=== PATIENT | female | born 1985 | race Caucasian/White ===

== ENCOUNTER → 2018-03-24 | Outpatient (CLI) | payer OTHER ==
[~2018-03-24] MED LIST: ACET-1311 PO; PRENTAB26 PO; SUMA100T16 PO
== END | disposition home or self-care (01) ==
LOC: C.LABSPEC 11:27
PROVIDERS: ATTEND Obstetrics & Gynecology
DX: Z34.81 Encounter for supervision of other normal pregnancy, first trimester (principal)

== ENCOUNTER → 2018-04-05 | Outpatient (CLI) | payer OTHER | END | disposition home or self-care (01) | LOC: C.LABSPEC 17:48 | PROVIDERS: ATTEND Obstetrics & Gynecology | DX: Z34.81 Encounter for supervision of other normal pregnancy, first trimester (principal); Z3A.00 Weeks of gestation of pregnancy not specified ==

== ENCOUNTER → 2018-04-13 | Outpatient (CLI) | payer OTHER ==
[2018-04-13 14:34] LABS: BASO % 0.1 %; BASO ABS # 0.01 K/uL (0-0.2); EOS % 0.4 %; EOS ABS # 0.03 K/uL (0-0.5); HEMATOCRIT 38.1 % (37-47); HEMOGLOBIN 13.3 g/dL (12.0-16.0); IG# 0.01 K/uL (0.00-0.02); LYMPH % 24.2 %; LYMPH ABS # 1.69 K/uL (1.2-3.4); MEAN CELL VOLUME 82.5 fL (80-100); MEAN CORPUSCULAR HEMOGLOBIN 28.8 pg (25-34); MEAN CORPUSCULAR HGB CONC 34.9 g/dl (32-36); MEAN PLATELET VOLUME 10.8 fL (7.4-10.4); MONO ABS # 0.42 K/uL (0.11-0.59); NEUT % 69.2 %; NEUT ABS # 4.82 K/uL (1.4-6.5); PLATELET COUNT 217 K/uL (130-400); RED CELL DISTRIBUTION WIDTH SD 45.2 fL (36.4-46.3); WHITE BLOOD COUNT 6.98 K/uL (4.8-10.8)
== END | disposition home or self-care (01) ==
LOC: C.LAB1850 12:46
PROVIDERS: ATTEND Obstetrics & Gynecology
DX: Z34.81 Encounter for supervision of other normal pregnancy, first trimester (principal)

== ENCOUNTER 2018-11-06 07:41 | Inpatient (IN) ==
[2018-11-06] MEDS ORDERED: LACTATED RINGER'S 1,000 ML IV PRN ×3 (08:15→14:31)
[2018-11-06] MEDS ORDERED: OXYTOCIN 30 UNITS/500 ML BAG IV PRN ×2 (08:15)
[2018-11-06 08:44] LABS: Hematocrit (blood only) 34.6 % (37-47); Hemoglobin 11.4 g/dL (12.0-16.0); Mean Corpuscular Hgb Conc 32.9 g/dL (32-36); Mean Corpuscular Volume 82.2 fL (80-100); Mean Platelet Volume 10.3 fL (7.4-10.4); Platelet Count 202 K/uL (130-400); RDW Coefficient of Variation 15.6 % (11.5-14.5); RDW Standard Deviation 46.5 fL (36.4-46.3); Red Blood Count 4.21 M/uL (4.2-5.4); White Blood Count 9.29 K/uL (4.8-10.8)
[2018-11-06] MEDS ORDERED: CEFAZOLIN 2000MG 2,000 MG/15 ML SYR IV STA (08:48)
[2018-11-06] MEDS: LACTATED RINGER'S 1,000 ML IV SCH ×2 (09:12→16:50)
--- NOTE | 2018-11-06 13:52 | History & Physical Report ---
Date of Service November 06, 2018 Assessment & Plan (1) 41 weeks gestation of : 32yo at 41.1 weeks GA. IOL Fetus: Cat1 Labor: s/p hernandez. Will start with oxtocin and AROM when able PPH risk: Low risk Vital: wnl Pain: Epidural prn History of Present Illness Primary Care Provider: NO PCP 32yo at 41.1 weeks GA. Patient present for late term IOL. Patient denying regular ctx, VB or LOF and reporting normal FM. course complicated by GBS+ Allergies Allergy/AdvReac Type Severity Reaction Status Date / Time Penicillins Allergy Unknown UNKNOWN - Verified 11/05/18 19:59 Home Medications Home Medications Medication Instructions Recorded Confirmed Type PNV cmb#95-ferrous fumarate-FA 1 tab PO DAILY 11/05/18 11/06/18 History [] Patient History Medical History No known health problems Surgical History No pertinent past surgical history Social History Preferred Language: Nepali Communication Ability: Effective Web Project Manager Required: No Beliefs That Will Affect Care: None marital status: Current Living Situation: Family Other Information That Helps Us Care for You: No Feels Safe at Home: Yes Safety Concerns: Feels Safe At This Time Smoking Status: Former smoker Hx Alcohol Use: No Hx Substance Use: No Physical Exam Vital Signs (Past 24 Hours): Last Vital Signs Temp 36.2 C L 11/06/18 11:59 Pulse 81 11/06/18 12:29 Resp 20 11/06/18 11:59 BP 136/84 11/06/18 12:29 Genitourinary: Manual OB Exam: + cervical dilation 3 cm, + cervical effacement 70% and + station high OB Exam Monitor Tracing: + category I
[2018-11-06] MEDS ORDERED: fentaNYL citrate 100 MCG/2 ML VIAL ONE (14:08)
[2018-11-06] MEDS ORDERED: ePHEDrine sulfate 50 MG/ML AMP ONE (14:08)
[2018-11-06] MEDS ORDERED: fentaNYL 2MCG/ML ROPIV 1.25MG/ML 100 ML BAG EPI ONE (14:08)
[2018-11-06] MEDS ORDERED: BUPIVACAINE 0.25% 30 ML VIAL ONE (14:08)
[2018-11-06] MEDS ORDERED: NALBUPHINE HCL INJ 10 MG/ML AMP IV PRN (14:31)
[2018-11-06] MEDS ORDERED: DiphenhydrAMINE HCL 50 MG/ML VIAL IV PRN (14:31)
[2018-11-06] MEDS ORDERED: ONDANSETRON INJ 2 MG/ML 2 ML VIAL IV PRN (14:31)
[2018-11-06] MEDS ORDERED: NALOXONE HCL 0.4 MG/1 ML VIAL/CARP IV PRN (14:31)
[2018-11-06] MEDS ORDERED: fentaNYL 2MCG/ML ROPIV 1.25MG/ML 100 ML BAG EPI PRN (14:31)
[2018-11-06] MEDS ORDERED: NALOXONE HCL 1 MG in SODIUM CHLORIDE 0.9% 1000ML 1,000 ML IV PRN (14:31)
--- NOTE | 2018-11-06 14:35 | Anesthesiology Consultation ---
Date of Service November 06, 2018 Assessment & Plan (1) Encounter for pre-operative examination: Chart Review Chart Review: Patient NOT seen in Pre Admission Testing and Acceptable Risk for Labor Epidural Consults Requested none History Height/Weight Height: 5 ft 6 in Weight: 105.233 kg Allergies Allergy/AdvReac Type Severity Reaction Status Date / Time Penicillins Allergy Unknown UNKNOWN - Verified 11/05/18 19:59 INFANT Medications Home Medications Medication Instructions Recorded Confirmed Last Taken PNV cmb#95-ferrous fumarate-FA 1 tab PO DAILY 11/05/18 11/06/18 11/06/18 07:00 [] Active Medications Generic Name Dose Route Start Last Admin Trade Name Freq PRN Reason Stop Dose Admin Lactated Ringer's 1,000 mls @ 125 mls/hr 11/06/18 08:15 11/06/18 09:12 Lr IV 11/08/18 08:14 125 mls/hr .Q8H SARAH Administration Oxytocin 30 units in 500 mls @ 22 mls/hr 11/06/18 08:15 11/06/18 14:30 Pitocin IV 11/08/18 08:14 1.32 units/hr .[id number] PRN 22 mls/hr Labor Induction/Augmentation Titration Protocol 1.32 UNITS/HR Past Medical History Medical History No known health problems Past Surgical History Surgical History No pertinent past surgical history Past Anesthesia History No Hx of Anesthesia Complications and No Family Hx of Anesthesia Complications History of PONV No Motion Sickness Screening History of Motion Sickness: No Social History Smoking Status: Former smoker Hx Alcohol Use: No Hx Substance Use: No Exercise / Class Metabolic Activity II 4-5 Yardwork/Stairs/Walk up hill Physical Exam Vital Signs Last Vital Signs Temp 36.2 C L 11/06/18 11:59 Pulse 77 11/06/18 14:51 Resp 20 11/06/18 11:59 BP 129/74 11/06/18 14:51 Pulse Ox 100 11/06/18 14:48 Testing Laboratory Results 11/06/18 08:37
[2018-11-06] MEDS: ePHEDrine sulfate 50 MG/ML AMP IV PRN ×2 (15:00→15:04)
[2018-11-06] MEDS ORDERED: CEFAZOLIN 1000MG 1,000 MG/7.5 ML SYR IV SCH (16:00)
--- NOTE | 2018-11-06 17:46 | Obstetrical Progress Note ---
Date of Service November 06, 2018 Assessment & Plan (1) 41 weeks gestation of : 32yo at 41.1 weeks GA. IOL Fetus: Cat1 with areas of Cat 2 with variables Labor: s/p hernandez. Will start with oxtocin and s/p AROM PPH risk: Low risk Vital: wnl Pain: Epidural in place Subjective Patient comfortable with epidural. Feeling some pressure Physical Exam Vital Signs (Past 24 Hours): Last Vital Signs Temp 36.6 C 11/06/18 17:21 Pulse 110 H 11/06/18 17:38 Resp 18 11/06/18 17:21 BP 110/58 L 11/06/18 17:23 Pulse Ox 98 11/06/18 17:38 Genitourinary: Manual OB Exam: + cervical dilation 6 cm, + cervical effacement 60%, + station -2 and -1 and + amniotic fluid clear OB Exam Monitor Tracing: + category I
[2018-11-06] MEDS ORDERED: DIPHTHERIA/TETANUS/PERTUSSIS 0.5 ML SYR/VIAL IM ONE (19:45)
[2018-11-06] MEDS ORDERED: HYDROCORTISONE ACETATE 25 MG SUPP PR PRN (19:45)
[2018-11-06] MEDS ORDERED: BENZOCAINE 20% AER SPR 82.5 GM CAN EXT PRN (19:45)
[2018-11-06] MEDS ORDERED: BISACODYL 10 MG SUPP PR PRN (19:45)
[2018-11-06] MEDS ORDERED: ACETAMINOPHEN 325 MG TAB PO PRN (19:45)
[2018-11-06] MEDS ORDERED: SUPERCREAM 0.870% 15 GM JAR EXT PRN (19:45)
[2018-11-06] MEDS: IBUPROFEN 600 MG TAB PO PRN (20:05)
[2018-11-06] MEDS ORDERED: METHYLERGONOVINE MALEATE 0.2 MG/ML AMP ONE (20:54)
[2018-11-06] MEDS ORDERED: miSOPROStol 200 MCG TAB PR ONE (20:58)
[2018-11-06] MEDS ORDERED: METHYLERGONOVINE MALEATE 0.2 MG/ML AMP IM STA (20:58)
[2018-11-06] MEDS ORDERED: METHYLERGONOVINE MALEATE 0.2 MG TAB PO SCH (21:00)
[2018-11-06] MEDS: OXYTOCIN 30 UNITS/500 ML BAG IV PRN ×2 (21:11→23:15)
--- NOTE | 2018-11-06 21:18 | Anesthesia Procedure Note ---
Date of Service November 06, 2018 Anesthesia Post Epidural Note Vital Signs Vital Signs: Temp Pulse Resp BP Pulse Ox 36.6 C 87 24 120/65 95 11/06/18 17:21 11/06/18 21:13 11/06/18 18:39 11/06/18 21:13 11/06/18 19:39 Pain Intensity Bilateral Abdomen: Pain Intensity: 2 Notes Mental Status: alert / awake / arousable and participated in evaluation Patient Amnestic to Procedure: No Nausea / Vomiting: adequately controlled Pain: adequately controlled Airway Patency, RR, SpO2: stable & adequate BP & HR: stable & adequate Hydration State: stable & adequate Neuraxial Anesthesia: was administered and sensory block is resolving Anesthetic Complications: no major complications apparent and Pt Satisfied with anesthetic care Epidural: Removed without complications and With tip intact
[2018-11-06] MEDS ORDERED: Nursing to Pharmacy Communication ONE (21:24)
--- NOTE | 2018-11-06 22:48 | Delivery Summary ---
DATE OF OPERATION: 11/06/2018 PREOPERATIVE DIAGNOSES: 1. Single intrauterine at 41 weeks 1 day gestational age. 2. Hypothyroidism. 3. GBS positive. POSTOPERATIVE DIAGNOSES: Same, delivered. PROCEDURE: Normal spontaneous vaginal delivery. SURGEON: Mayank Love MD ESTIMATED BLOOD LOSS: Approximately 200 mL. DRAINS: None. FLUIDS: Continuous lactated Ringer. URINE OUTPUT: Not measured. COMPLICATIONS: None. INDICATIONS: Shannon is a 32-year-old -0-0-2 admitted at 41 weeks 1 day gestational age for late term induction of labor. On initial presentation, she was found to be 3 cm dilated, approximately 40% to 50% effaced, negative 3-4 station. A bedside ultrasound was noted to have fetus in cephalic position. The patient was then started on oxytocin per regular protocol and received cefazolin for GBS positive with penicillin allergy. After the patient was completed on penicillin, she did opt to proceed with placement of an epidural. The patient then underwent artificial rupture of membranes for clear fluid. The patient then continued to progress in labor to complete-complete +1, at which time she did desire to push. DESCRIPTION OF PROCEDURE: The patient progressed to 10 cm dilated, 100% effaced, positive 1 station, pushed over intact perineum for a little over an hour to deliver a viable female with weight pending and Apgars of 8 and 9 at 1 and 5 minutes respectively. The head of delivered in direct OP and restituted to left transverse. Nuchal x1 was noted which was easily reduced. The body and shoulders quickly followed. The was noted to be vigorous soon after delivery and a 1-minute delayed cord clamping was initiated. The cord was then double clamped and cut and cord blood was then obtained. Attention was then turned to delivery. The placenta was delivered intact with 3-vessel cord with gentle cord traction. Inspection of the perineum, cervix and vagina noted no lacerations. Sponge and instrument counts were correct at the completion of the case. Both mother and were stable in immediate post-delivery period. I attest to the content of the Intraoperative Record and any orders documented therein. Any exception s are noted below.
[2018-11-07] MEDS: METHYLERGONOVINE MALEATE 0.2 MG TAB PO SCH ×3 (03:27→15:05)
[2018-11-07] MEDS: IBUPROFEN 600 MG TAB PO PRN ×2 (03:29→16:27)
[2018-11-07 07:11] LABS: Hematocrit (blood only) 33.5 % (37-47); Hemoglobin 11.1 g/dL (12.0-16.0); Mean Corpuscular Hgb Conc 33.1 g/dL (32-36); Mean Corpuscular Volume 82.3 fL (80-100); Mean Platelet Volume 10.3 fL (7.4-10.4); Platelet Count 173 K/uL (130-400); RDW Coefficient of Variation 15.6 % (11.5-14.5); RDW Standard Deviation 47.2 fL (36.4-46.3); Red Blood Count 4.07 M/uL (4.2-5.4); White Blood Count 11.56 K/uL (4.8-10.8)
--- NOTE | 2018-11-07 07:21 | Obstetrical Progress Note ---
Date of Service November 07, 2018 Subjective Ambulation: ambulating normally Voiding: no voiding problems Passing Gas:: Yes Diet Tolerance:: regular diet Lochia:: Moderate Physical Exam Vital Signs (Past 24 Hours) Last Vital Signs Temp 36.8 C 11/07/18 03:25 Pulse 90 11/07/18 03:25 Resp 18 11/07/18 03:25 BP 117/73 11/07/18 03:25 Pulse Ox 97 11/07/18 03:25 Gastrointestinal (Abdomen) Percussion/Palpation: abdomen soft; abdomen nontender Genitourinary OB Exam Abdomen: + fundal height Fundus: + firm and + relation to umbilicus (Below); not tender and not boggy
[2018-11-07] MEDS: PRENATAL VITAMIN 1 TAB PO SCH (08:23)
[2018-11-07] MEDS: DOCUSATE SODIUM 100 MG CAP PO SCH ×2 (08:23→21:06)
[2018-11-07] MEDS ORDERED: BISACODYL 5 MG TABEC PO SCH (20:00)
[2018-11-07] MEDS ORDERED: Nursing to Pharmacy Communication ONE (20:12)
--- NOTE | 2018-11-08 06:27 | Obstetrical Progress Note ---
Date of Service November 08, 2018 Assessment & Plan (1) (spontaneous vaginal delivery): -vital signs reviewed and WNL -last Hgb 11.1 -Blood type: A+, GBS+, Rubella Immune -pt doing well clinically -encourage ambulation, monitor and control pain with motrin tylenol, cont regular diet, monitor lochia -cont encourage breast feeding -plan for d/c today Subjective 32 y/o PPD2 found in bed this morning in NAD. Reports no acute overnight events. Pt states that she has no pain other than appropriate soreness. Tolerating PO intake without N/V. Able to ambulate without issue. She is breast feeding without issue. No issues with voiding, no BM yet. No other acute concerns or complaints. Pt ok with plan for d/c today. Review of Systems All systems reviewed & are unremarkable except as noted in HPI & below Physical Exam Vital Signs (Past 24 Hours) Last Vital Signs Temp 36.7 C 11/07/18 23:15 Pulse 77 11/07/18 23:15 Resp 18 11/07/18 23:15 BP 127/82 11/07/18 23:15 Pulse Ox 96 11/07/18 23:15 Constitutional WD/WN, vitals as above Eyes PERRL, conjunctivae normal, anicteric sclerae ENMT external ear and nose normal, oropharynx normal Respiratory normal respiratory effort, lungs clear to auscultation Cardiovascular RRR, no murmur, no edema Gastrointestinal (Abdomen) mild abd tenderness Skin no rashes, warm and dry Psychiatric A+Ox3, euthymic affect Lymphatic no LE swelling, no calf tenderness Results & Data Laboratory Results Laboratory Results - last 24 hr 11/07/18 06:41 WBC 11.56 H RBC 4.07 L Hgb 11.1 L Hct 33.5 L MCV 82.3 MCH 27.3 MCHC 33.1 RDW Std Deviation 47.2 H RDW Coeff of Eros 15.6 H Plt Count 173 MPV 10.3 Medications Administered Current Inpatient Medications Acetaminophen (Tylenol) 650 mg PO Q6H PRN PRN Reason: Pain/HENDRICKS/Fever Stop: 12/06/18 19:44 Last Admin: 11/07/18 04:02 Dose: 650 mg Documented by: Benzocaine (Dermoplast Pain Relieving [place]) 1 appln EXT PRN PRN PRN Reason: Perineal Discomfort Stop: 12/06/18 19:44 Bisacodyl (Dulcolax) 10 mg UT DAILY PRN PRN Reason: No BM on 2nd post- day Stop: 12/06/18 19:44 Cocaine HCl (Supercream 0.870%) 1 gm EXT BID PRN PRN Reason: Hemorrhoidal Inflammation Stop: 11/20/18 19:44 Docusate Sodium (Colace) 100 mg PO BID [facility] Stop: 12/06/18 20:59 Last Admin: 11/07/18 21:06 Dose: 100 mg Documented by: Hydrocortisone (Anusol Hc) 25 mg UT BID PRN PRN Reason: Hemorrhoidal Inflammation Stop: 12/06/18 19:44 Lactated Ringer's (Lr) 1,000 mls @ 999 mls/hr IV .Q1H1M PRN PRN Reason: (Pre-Anesthesia) Stop: 12/06/18 08:14 Last Infusion: 11/06/18 15:18 Dose: 0 mls/hr Documented by: Lactated Ringer's (Lr) 1,000 mls @ 125 mls/hr IV .Q8H SARAH Stop: 11/08/18 08:14 Last Infusion: 11/06/18 19:38 Dose: Infused Documented by: Oxytocin (Pitocin) 30 units in 500 mls @ 333.333 mls/hr IV .Q1H30M PRN; Protocol PRN Reason: Bleeding Control Stop: 12/06/18 08:14 Last Titration: 11/06/18 20:35 Dose: Infused Documented by: Oxytocin (Pitocin) 30 units in 500 mls @ 333.333 mls/hr IV .Q1H30M PRN; Protocol PRN Reason: BLEEDING CONTROL Last Titration: 11/07/18 01:00 Dose: Infused Documented by: Ibuprofen (Motrin) 600 mg PO Q4H PRN PRN Reason: Pain/HENDRICKS/Cramping/Fever Stop: 12/06/18 19:44 Last Admin: 11/07/18 16:27 Dose: 600 mg Documented by: Prenat Multivit/Ernest/Iron/Folic Ac ( Vitamin) 1 tab PO QAM [facility] Stop: 12/07/18 08:59 Last Admin: 11/07/18 08:23 Dose: 1 tab Documented by: Resident Activity Tracking Resident Involvement: Resident Care Provided Care Provided: OB Delivery
[2018-11-08 07:03] LABS: Hemoglobin 10.4 g/dL (12.0-16.0)
[2018-11-08 08:07] VITALS: BP 111/66; PULSE 70; TEMP 97.9; O2SAT 94
[2018-11-08] MEDS: IBUPROFEN 600 MG TAB PO PRN (08:29)
[2018-11-08] MEDS: DOCUSATE SODIUM 100 MG CAP PO SCH (08:29)
[2018-11-08] MEDS: PRENATAL VITAMIN 1 TAB PO SCH (08:29)
[2018-11-08] MEDS ORDERED: NON-FORMULARY MEDICATION (Pnv Cmb#95-Ferrous Fumarate-Fa [Prenatal] 1 TAB) PO SCH (09:00)
== END 2018-11-08 14:13 | disposition home or self-care (01) | DRG 807 ==
LOC: 4S1 07:41 → 4S2 22:41